=== PATIENT | female | born 1945 | race Caucasian/White ===

== ENCOUNTER 2025-01-16 22:58 | Inpatient (IN) | payer MEDICARE, OTHER ==
[~2025-01-16] VITALS: Ht 165.1 cm; Wt 72.6 kg
[2025-01-16 23:34] LABS: BASOPHILS # (AUTO) 0.1 K/uL (0.0-0.2); BASOPHILS % (AUTO) 0.9 % (0.0-2.0); EOSINOPHILS # (AUTO) 0.4 K/uL (0.0-0.7); EOSINOPHILS % (AUTO) 3.8 % (0.0-6.0); HEMATOCRIT 34 % (33-45); HEMOGLOBIN 11.5 g/dL (11.5-14.8); LYMPHOCYTES # (AUTO) 3.6 K/uL (0.8-4.8); LYMPHOCYTES % (AUTO) 34.9 % (20.0-44.0); MEAN CORPUSCULAR HEMOGLOBIN 32 PG (26.0-33.0); MEAN CORPUSCULAR HGB CONC 34 g/dl (31.0-36.0); MEAN CORPUSCULAR VOLUME 93 fL (82-100); MONOCYTES # (AUTO) 0.7 K/uL (0.1-1.30); MONOCYTES % (AUTO) 6.4 % (2.0-12.0); NEUTROPHILS # (AUTO) 5.5 K/uL (1.8-8.9); PLATELET COUNT (AUTO) 333 K/uL (150-450); RED BLOOD CELL COUNT(AUTO) 3.67 MIL/uL (4.0-5.2); RED CELL DISTRIBUTION WIDTH 14.1 % (11.5-15.0); WHITE BLOOD COUNT (AUTO) 10.2 K/uL (4.3-11.0)
[2025-01-16 23:42] LABS: CALCIUM, SERUM 9.5 mg/dL (8.5-10.1); CARBON DIOXIDE 27 mmol/L (21-32); CHLORIDE 105 mmol/L (98-107); CREATININE 1.7 mg/dL (0.6-1.3); GLUCOSE 102 mg/dL (74-106); POTASSIUM 5.7 mmol/L (3.5-5.1); SODIUM SERUM 139 mmol/L (136-145); UREA NITROGEN, BLOOD 50 mg/dL (7-18)
[2025-01-16 23:49] LABS: ALANINE AMINOTRANSFERASE 13 U/L (12-78); ALBUMIN 3.5 g/dL (3.4-5.0); ALCOHOL, BLOOD < 3 mg/dL (0-10); ALKALINE PHOSPHATASE 89 U/L (46-116); ASPARTATE AMINOTRANSFERASE 17 U/L (15-37); BILIRUBIN,DIRECT 0.1 mg/dL (0.0-0.2); BILIRUBIN,TOTAL 0.1 mg/dL (0.2-1.0); TOTAL PROTEIN, SERUM 7.6 g/dL (6.4-8.2)
[2025-01-16 23:52] LABS: ACETAMINOPHEN <10 ug/ml (10-30)
[2025-01-17 00:02] LABS: APPEARANCE,URINE CLEAR (CLEAR); BILIRUBIN,URINE NEGATIVE (NEGATIVE); BLOOD, URINE NEGATIVE Ery/uL (NEGATIVE); COLOR,URINE YELLOW (YELLOW); KETONES,URINE NEGATIVE (NEGATIVE); LEUKOCYTE ESTERASE ,URINE TRACE (NEGATIVE); NITRITE, URINE NEGATIVE (NEGATIVE); PROTEIN,URINE NEGATIVE (NEGATIVE); UGLUCOSE NEGATIVE (NEGATIVE); UROBILINOGEN,URINE 0.2 EU/dL (0.2)
[2025-01-17] MEDS ORDERED: ATOR40TA PO (00:11)
[2025-01-17] MEDS ORDERED: GABA-532 PO (00:11)
[2025-01-17] MEDS ORDERED: MULT-213 PO (00:11)
[2025-01-17] MEDS ORDERED: OXCA300T15 PO (00:11)
[2025-01-17] MEDS ORDERED: MIRT-90 PO (00:11)
[2025-01-17] MEDS ORDERED: LOSA50TA39 PO (00:11)
[2025-01-17] MEDS ORDERED: DOCU100C36 PO (00:11)
[2025-01-17] MEDS ORDERED: CRAN425C6 PO (00:11)
[2025-01-17 00:30] LABS: ADD URINE CULTURE NO; AMPHETAMINE, URINE NEGATIVE (NEGATIVE); BACTERIA,URINE Few /HPF (None Seen); BARBITURATE, URINE NEGATIVE (NEGATIVE); BENZODIAZEPINE, URINE NEGATIVE (NEGATIVE); CANNABINOID, URINE NEGATIVE (NEGATIVE); COCCAINE, URINE NEGATIVE (NEGATIVE); OPIATE, URINE NEGATIVE (NEGATIVE); PHENCYCLIDINE SCREEN,URINE NEGATIVE (NEGATIVE); RBC,URINE 0-2 /HPF (0-2); SQUAMOUS EPITHELIAL CELL,UR Few /HPF (None Seen)
[2025-01-17] MEDS ORDERED: diphenhydrAMINE HCL 50 MG/ML VIAL ONE (00:46)
[2025-01-17] MEDS ORDERED: LORAZEPAM INJ 2 MG/ML VIAL ONE (00:47)
[2025-01-17] MEDS: IV NS 0.9% 500 ML BAG IV ONE (00:51)
[2025-01-17] MEDS: diphenhydrAMINE HCL 50 MG/ML VIAL IV ONE (00:51)
[2025-01-17] MEDS: LORAZEPAM INJ 2 MG/ML VIAL IV ONE (00:51)
[2025-01-17] MEDS: SODIUM BICARBONATE SYR 50 MEQ/50 ML DISP.SYRIN IV ONE (00:53)
[2025-01-17] MEDS ORDERED: MAGNESIUM HYDROXIDE 30 ML UDC PO PRN (01:00)
[2025-01-17] MEDS ORDERED: ACETAMINOPHEN 325 MG TABLET PO PRN (01:00)
[2025-01-17] MEDS ORDERED: ONDANSETRON HCL/PF 4 MG/2 ML VIAL IVP PRN (01:00)
[2025-01-17] MEDS ORDERED: Z GUARD REMEDY 4 OZ OINT TP PRN (01:00)
[2025-01-17 01:13] VITALS: O2SAT 95
[2025-01-17] MEDS: ALBUTEROL FS 2.5 MG/3 ML VIAL.NEB NEB ONE (01:13)
[2025-01-17 01:34] VITALS: O2SAT 100
[2025-01-17] MEDS ORDERED: SODIUM ZIRCONIUM CYCLOSILICATE 10 GM POWD.PACK ONE (03:16)
[2025-01-17] MEDS ORDERED: SODIUM POLYSTYRENE SULFONATE 15 G/60 ML BOTTLE ONE (03:16)
[2025-01-17] MEDS: SODIUM ZIRCONIUM CYCLOSILICATE 5 GM POWD.PACK PO ONE (03:17)
[2025-01-17] MEDS: SODIUM POLYSTYRENE SULFONATE 15 G/60 ML BOTTLE PO ONE (03:17)
[2025-01-17 06:34] LABS: CREATININE 1.5 mg/dL (0.6-1.3); MAGNESIUM 2.2 mg/dL (1.8-2.4); POTASSIUM 4.2 mmol/L (3.5-5.1)
[2025-01-17] MEDS: PANTOPRAZOLE 40 MG TABLET.DR PO SCH (07:30)
[2025-01-17] MEDS ORDERED: ACET-2030 PO (08:26)
[2025-01-17] MEDS ORDERED: ACET-868 PO (08:26)
[2025-01-17 08:30] VITALS: BP 148/88; O2SAT 98
[2025-01-17] MEDS: OLANZAPINE 10 MG VIAL IM ONE (10:40)
[2025-01-17] MEDS: QUETIAPINE FUMARATE 25 MG TABLET PO SCH (13:01)
[2025-01-17] MEDS: DIVALPROEX SODIUM 125 MG TABLET.DR PO SCH (13:01)
[2025-01-17] MEDS ORDERED: QUET25TA PO (16:37)
[2025-01-17] MEDS ORDERED: DIVA125T32 PO (16:37)
== END 2025-01-17 13:30 | DRG 641 ==
LOC: ER 23:00 → TELE 01-17 07:29
DX: E87.5 Hyperkalemia (principal); F03.918 Unspecified dementia, unspecified severity, with other behavioral disturbance; G93.40 Encephalopathy, unspecified; N28.9 Disorder of kidney and ureter, unspecified; R79.89 Other specified abnormal findings of blood chemistry; Z79.899 Other long term (current) drug therapy; E78.5 Hyperlipidemia, unspecified; Z20.822 Contact with and (suspected) exposure to COVID-19; N18.9 Chronic kidney disease, unspecified; I12.9 Hypertensive chronic kidney disease with stage 1 through stage 4 chronic kidney disease, or unspecified chronic kidney disease; F29 Unspecified psychosis not due to a substance or known physiological condition; F39 Unspecified mood [affective] disorder
CPT/HCPCS: 36415; 80048-TC; 80076-TC; 81001; 83735-TC; 85025-TC; G0378; G0480; J1200; J2060; J3490; J7040

== ENCOUNTER 2025-01-17 13:34 | Inpatient (IN) | payer MEDICARE, OTHER ==
[~2025-01-17] VITALS: Ht 162.6 cm; Wt 72.6 kg
[~2025-01-17 13:34] MED LIST: ACET-2030 PO; ACET-868 PO; ATOR40TA PO; CRAN425C6 PO; DOCU100C36 PO; GABA-532 PO; LOSA50TA39 PO; MIRT-90 PO; MULT-213 PO; OXCA300T15 PO
[2025-01-17 16:00] VITALS: BP 129/88; TEMP 97.8; O2SAT 98
[2025-01-17] MEDS ORDERED: MAG HYDROX/AL HYDROX/SIMETH 30 ML UDC PO PRN (16:00)
[2025-01-17] MEDS: BLOOD SUGAR DIAGNOSTIC 1 EACH STRIP IN ONE (16:00)
[2025-01-17] MEDS ORDERED: MAGNESIUM HYDROXIDE 30 ML UDC PO PRN (16:00)
[2025-01-17] MEDS ORDERED: QUET25TA PO (16:37)
[2025-01-17] MEDS ORDERED: DIVA125T32 PO (16:37)
[2025-01-17 20:00] VITALS: BP 147/85; TEMP 98.2; O2SAT 99
[2025-01-17] MEDS: ZOLPIDEM TARTRATE 5 MG TABLET PO PRN (23:22)
[2025-01-18 07:37] LABS: ALBUMIN 3.3 g/dL (3.4-5.0); BILIRUBIN,TOTAL 0.5 mg/dL (0.2-1.0); CALCIUM, SERUM 9.2 mg/dL (8.5-10.1); CREATININE 1.3 mg/dL (0.6-1.3); POTASSIUM 3.8 mmol/L (3.5-5.1)
[2025-01-18 07:39] LABS: CHOLESTEROL 188 mg/dL (<200); HDL CHOLESTEROL 61 mg/dL (40-60); LDL 111 mg/dL (0-99); TRIGLYCERIDES 56 mg/dL (30-150)
[2025-01-18 08:00] VITALS: BP 150/89; TEMP 97.7; O2SAT 97
[2025-01-18 16:00] VITALS: BP 137/51; TEMP 98.6; O2SAT 98
[2025-01-18] MEDS: DIVALPROEX SODIUM 125 MG TABLET.DR PO SCH (16:42)
[2025-01-18 19:05] LABS: CREATININE 1.4 mg/dL (0.6-1.3)
[2025-01-18] MEDS: QUETIAPINE FUMARATE 25 MG TABLET PO SCH (20:06)
[2025-01-18 20:09] VITALS: BP 134/80; TEMP 98.3; O2SAT 97
[2025-01-19 07:30] VITALS: BP 126/78; TEMP 98.1; O2SAT 100
[2025-01-19 16:00] VITALS: BP 132/54; TEMP 97.3; O2SAT 98
[2025-01-19 17:51] VITALS: BP 134/82; TEMP 98.1; O2SAT 96
[2025-01-19 20:00] VITALS: BP 146/68; TEMP 97.6; O2SAT 98
[2025-01-19 20:31] VITALS: BP 146/68; TEMP 97.6; O2SAT 98
[2025-01-20 08:39] VITALS: BP 148/73; TEMP 97.8; O2SAT 98
[2025-01-20 16:00] VITALS: BP 128/73; TEMP 98; O2SAT 98
[2025-01-20 20:39] VITALS: BP 136/82; TEMP 98.1; O2SAT 98
[2025-01-21 08:00] VITALS: BP 141/75; TEMP 97.8; O2SAT 97
[2025-01-21 16:00] VITALS: BP 123/73; TEMP 98.7; O2SAT 99
[2025-01-21 20:00] VITALS: BP 138/65; TEMP 98.5; O2SAT 95
[2025-01-21] MEDS: Z GUARD REMEDY 4 OZ OINT TP SCH (20:16)
[2025-01-21] MEDS: ZOLPIDEM TARTRATE 5 MG TABLET PO PRN (23:28)
[2025-01-22 08:00] VITALS: BP 171/87; TEMP 97.7; O2SAT 98
[2025-01-22 16:15] VITALS: BP 152/96; TEMP 97.8; O2SAT 99
[2025-01-22 20:00] VITALS: BP 144/67; TEMP 98.2; O2SAT 98
[2025-01-22 21:24] VITALS: BP 144/67; TEMP 98.7; O2SAT 98
[2025-01-23 08:00] VITALS: BP 160/90; TEMP 98.7; O2SAT 98
[2025-01-23] MEDS ORDERED: hydrALAZINE HCL 10 MG TABLET PO SCH (11:00)
[2025-01-23] MEDS: hydrALAZINE HCL 10 MG TABLET PO SCH (13:02)
[2025-01-23] MEDS: DIVALPROEX SODIUM 125 MG TABLET.DR PO SCH (13:03)
[2025-01-23] MEDS: QUETIAPINE FUMARATE 25 MG TABLET PO SCH ×2 (13:03→21:21)
[2025-01-23 16:09] VITALS: BP 119/67; TEMP 98.1; O2SAT 98
[2025-01-23 20:03] VITALS: BP 132/68; TEMP 98.6; O2SAT 96
[2025-01-24 08:00] VITALS: BP 115/77; TEMP 98; O2SAT 96
[2025-01-24] MEDS: ASPIRIN 81 MG TAB.CHEW PO SCH (11:40)
[2025-01-24 16:00] VITALS: BP 110/62; TEMP 98; O2SAT 96
[2025-01-24 20:30] VITALS: BP 115/66; TEMP 97.8; O2SAT 98
[2025-01-24] MEDS: ATORVASTATIN 10 MG TABLET PO SCH (21:07)
[2025-01-25 08:00] VITALS: BP 122/62; TEMP 98.7; O2SAT 97
[2025-01-25 16:00] VITALS: BP 116/66; TEMP 98.6; O2SAT 95
[2025-01-25 20:09] VITALS: BP 130/90; TEMP 98.4; O2SAT 97
[2025-01-26 08:00] VITALS: BP 135/70; TEMP 97.7; O2SAT 99
[2025-01-26] MEDS: LORAZEPAM 0.5 MG TABLET PO STA (09:58)
[2025-01-26 16:00] VITALS: BP 127/70; TEMP 97.8; O2SAT 97
[2025-01-26 20:31] VITALS: BP 125/79; TEMP 98; O2SAT 98
[2025-01-27 08:00] VITALS: BP 146/79; TEMP 98.1; O2SAT 97
[2025-01-27] MEDS: QUETIAPINE FUMARATE 25 MG TABLET PO SCH (08:26)
[2025-01-27 16:00] VITALS: BP 108/84; TEMP 98.1; O2SAT 97
[2025-01-27] MEDS: LORAZEPAM 1 MG TABLET PO ONE (19:14)
[2025-01-27] MEDS: ACETAMINOPHEN 325 MG TABLET PO PRN (20:34)
[2025-01-27] MEDS: OLANZAPINE 10 MG VIAL IM STA (22:40)
[2025-01-28 08:00] VITALS: BP 121/92; TEMP 97.8; O2SAT 100
[2025-01-28] MEDS: OLANZAPINE 10 MG VIAL IM STA (12:16)
[2025-01-28] MEDS: QUETIAPINE FUMARATE 25 MG TABLET PO SCH (15:19)
[2025-01-28 15:38] VITALS: BP 134/98; TEMP 97.7; O2SAT 98
[2025-01-28 16:00] VITALS: BP 134/98; TEMP 97.7; O2SAT 98
[2025-01-28 20:49] VITALS: BP 122/95; TEMP 97.7; O2SAT 98
[2025-01-28 20:54] VITALS: BP 122/95; TEMP 97.7; O2SAT 98
[2025-01-28] MEDS: QUETIAPINE FUMARATE 25 MG TABLET PO PRN (23:31)
[2025-01-29 07:38] LABS: BASOPHILS # (AUTO) 0.1 K/uL (0.0-0.2); BASOPHILS % (AUTO) 1.3 % (0.0-2.0); EOSINOPHILS # (AUTO) 0.1 K/uL (0.0-0.7); EOSINOPHILS % (AUTO) 0.7 % (0.0-6.0); HEMATOCRIT 40 % (33-45); HEMOGLOBIN 12.8 g/dL (11.5-14.8); LYMPHOCYTES # (AUTO) 2.2 K/uL (0.8-4.8); LYMPHOCYTES % (AUTO) 23.9 % (20.0-44.0); MEAN CORPUSCULAR HEMOGLOBIN 31 PG (26.0-33.0); MEAN CORPUSCULAR HGB CONC 32 g/dl (31.0-36.0); MEAN CORPUSCULAR VOLUME 95 fL (82-100); MONOCYTES # (AUTO) 0.7 K/uL (0.1-1.30); MONOCYTES % (AUTO) 7.9 % (2.0-12.0); NEUTROPHILS % (AUTO) 66.2 % (43.0-81.0); PLATELET COUNT (AUTO) 314 K/uL (150-450); RED BLOOD CELL COUNT(AUTO) 4.18 MIL/uL (4.0-5.2); RED CELL DISTRIBUTION WIDTH 13.7 % (11.5-15.0)
[2025-01-29 08:00] VITALS: BP 129/87; TEMP 97.8; O2SAT 94
[2025-01-29 08:32] LABS: ALBUMIN 3.9 g/dL (3.4-5.0); BILIRUBIN,TOTAL 0.4 mg/dL (0.2-1.0); CALCIUM, SERUM 9.7 mg/dL (8.5-10.1); POTASSIUM 4.6 mmol/L (3.5-5.1); TOTAL PROTEIN, SERUM 8.4 g/dL (6.4-8.2)
[2025-01-29] MEDS: DIVALPROEX SODIUM 125 MG TABLET.DR PO SCH (13:39)
[2025-01-29 16:00] VITALS: BP 100/65; TEMP 98; O2SAT 96
[2025-01-29 19:27] LABS: APPEARANCE,URINE CLOUDY (CLEAR); BILIRUBIN,URINE NEGATIVE (NEGATIVE); BLOOD, URINE TRACE-INTA Ery/uL (NEGATIVE); COLOR,URINE YELLOW (YELLOW); KETONES,URINE NEGATIVE (NEGATIVE); LEUKOCYTE ESTERASE ,URINE 3+ (NEGATIVE); NITRITE, URINE NEGATIVE (NEGATIVE); PROTEIN,URINE 1+ mg/dl (NEGATIVE); UGLUCOSE NEGATIVE (NEGATIVE); UROBILINOGEN,URINE 0.2 EU/dL (0.2)
[2025-01-29 19:54] LABS: ADD URINE CULTURE YES; BACTERIA,URINE Many /HPF (None Seen); WBC,URINE TOO NUMEROUS TO COUN /HPF (0-3)
[2025-01-29 19:57] LABS: SQUAMOUS EPITHELIAL CELL,UR Few /HPF (None Seen)
[2025-01-29 20:19] VITALS: BP 141/82; TEMP 98.2; O2SAT 98
[2025-01-29] MEDS: DIVALPROEX SODIUM 250 MG TABLET.DR PO SCH (20:19)
[2025-01-30] MEDS: CEPHALEXIN MONOHYDRATE 500 MG CAPSULE PO SCH (01:29)
[2025-01-30 04:00] VITALS: BP 141/82; TEMP 98.2; O2SAT 98
[2025-01-30 08:00] VITALS: BP 118/65; TEMP 97.8; O2SAT 97
[2025-01-30 16:00] VITALS: BP 135/68; TEMP 98.2; O2SAT 95
[2025-01-30 20:06] VITALS: BP 126/63; TEMP 97.9; O2SAT 99
[2025-01-31 08:00] VITALS: BP 127/71; TEMP 97.9; O2SAT 97
[2025-01-31] MEDS: DIVALPROEX SODIUM 125 MG CAP.SPRINK PO SCH ×2 (09:13→21:01)
[2025-01-31 16:00] VITALS: BP 119/90; TEMP 97.7; TEMP 98; O2SAT 96
[2025-01-31 20:00] VITALS: BP 109/65; TEMP 97.6; O2SAT 99
[2025-02-01 08:00] VITALS: BP 147/78; TEMP 98; O2SAT 98
[2025-02-01 13:32] VITALS: BP 128/69
== END 2025-02-01 14:20 | DRG 885 ==
LOC: GPS 13:34
PROVIDERS: ADMIT Psychiatry & Neurology Psychiatry; ATTEND Nurse Practitioner Acute Care
DX: F39 Unspecified mood [affective] disorder (principal); N18.9 Chronic kidney disease, unspecified; N17.9 Acute kidney failure, unspecified; G92.8 Other toxic encephalopathy; E44.1 Mild protein-calorie malnutrition; F03.92 Unspecified dementia, unspecified severity, with psychotic disturbance; F03.93 Unspecified dementia, unspecified severity, with mood disturbance; F29 Unspecified psychosis not due to a substance or known physiological condition; M89.8X9 Other specified disorders of bone, unspecified site; I12.9 Hypertensive chronic kidney disease with stage 1 through stage 4 chronic kidney disease, or unspecified chronic kidney disease; E78.5 Hyperlipidemia, unspecified; E86.0 Dehydration; E87.5 Hyperkalemia; E88.09 Other disorders of plasma-protein metabolism, not elsewhere classified; E83.9 Disorder of mineral metabolism, unspecified; Z68.27 Body mass index [BMI] 27.0-27.9, adult
CPT/HCPCS: 36415; 80053-TC; 80061-TC; 80164-TC; 81001; 82565-TC; 85025-TC; 87086-TC; 87186-TC; 97110-TC; 97112-TC; 97116-TC; 97530-TC; J3490